=== PATIENT | male | born 1965 | race Caucasian/White ===

== ENCOUNTER 2017-11-22 10:06 | Outpatient (CLI) | payer OTHER | END 2017-11-22 13:58 | disposition home or self-care (01) | LOC: RAD 10:06 | DX: J44.9 Chronic obstructive pulmonary disease, unspecified (principal); M12.9 Arthropathy, unspecified; M19.90 Unspecified osteoarthritis, unspecified site ==

== ENCOUNTER 2017-11-22 10:18 | Outpatient (CLI) | payer OTHER | END 2017-11-22 13:59 | disposition home or self-care (01) | LOC: SONOGRAMA 10:18 | DX: M12.9 Arthropathy, unspecified (principal); M19.90 Unspecified osteoarthritis, unspecified site ==